=== PATIENT | male | born 1940 | race Caucasian/White ===

== ENCOUNTER 2017-04-14 11:56 | Emergency (ER) | payer MEDICARE ==
--- NOTE | 2017-04-14 12:14 | ER Document Report ---
ED Medical Screen (RME) - General Chief Complaint: Problem with Urinary Catheter Stated Complaint: MCGOVERN CONCERN Time Seen by Provider: 04/14/17 12:13 Notes: Patient has a suprapubic Mcgovern catheter and it began leaking around the catheter about 2:30 AM this morning. TRAVEL OUTSIDE OF THE [place] IN LAST 30 DAYS: No - Related Data Allergies/Adverse Reactions: No Known Allergies Allergy (Verified 04/14/17 12:04) Past Medical History Renal/ Medical History: Denies: Hx Peritoneal Dialysis Physical Exam - Vital signs Vitals: Temp Pulse Resp BP Pulse Ox 97.7 F 73 16 140/61 H 97 04/14/17 12:01 04/14/17 12:01 04/14/17 12:01 04/14/17 12:01 04/14/17 12:01 Course - Vital Signs Vital signs: Temp Pulse Resp BP Pulse Ox 97.7 F 73 16 140/61 H 97 04/14/17 12:01 04/14/17 12:01 04/14/17 12:01 04/14/17 12:01 04/14/17 12:01
--- NOTE | 2017-04-14 13:45 | ER Document Report ---
ED GI/ - General Chief Complaint: Problem with Urinary Catheter Stated Complaint: MCGOVERN CONCERN Time Seen by Provider: 04/14/17 12:13 Mode of Arrival: Ambulatory Information source: Patient Notes: Patient is a 76-year-old male who presents to the ER today from out of town, he is on vacation, for redness, pus. Discharge from the site of his suprapubic catheter insertion. Patient has had this for "quite a while" but had a new one placed 3 weeks ago by his urologist in [place]. He states that yesterday he had no redness or drainage and today, early this morning woke up with such. He denies any fevers or chills. TRAVEL OUTSIDE OF THE [place] IN LAST 30 DAYS: No - Related Data Allergies/Adverse Reactions: No Known Allergies Allergy (Verified 04/14/17 12:04) Past Medical History - General Information source: Patient, Relative - Social History Smoking Status: Never Smoker Family History: Reviewed & Not Pertinent Patient has suicidal ideation: No Patient has homicidal ideation: No Renal/ Medical History: Denies: Hx Peritoneal Dialysis Review of Systems - Review of Systems Constitutional: No symptoms reported EENT: No symptoms reported Cardiovascular: No symptoms reported Respiratory: No symptoms reported Gastrointestinal: No symptoms reported Genitourinary: See HPI Male Genitourinary: No symptoms reported Musculoskeletal: No symptoms reported Skin: No symptoms reported Hematologic/Lymphatic: No symptoms reported Neurological/Psychological: No symptoms reported Physical Exam - Vital signs Vitals: Temp Pulse Resp BP Pulse Ox 97.7 F 73 16 140/61 H 97 04/14/17 12:01 04/14/17 12:01 04/14/17 12:01 04/14/17 12:01 04/14/17 12:01 - Notes Notes: PHYSICAL EXAMINATION: GENERAL: Well-appearing and in no acute distress. HEAD: Atraumatic, normocephalic. EYES: Pupils equal round and reactive to light, extraocular movements intact, sclera anicteric, conjunctiva are normal. NECK: Normal range of motion, supple without lymphadenopathy LUNGS: CTAB and equal. No wheezes rales or rhonchi. HEART: Regular rate and rhythm without murmurs ABDOMEN: Soft, suprapubic catheter insertion site with 2cm of surrounding erythema and purulent drainage, no tenderness. No guarding, no rebound BACK: no vertebral tenderness, normal ROM GI/: no CVA tenderness EXTREMITIES: Normal range of motion, no pitting edema. No cyanosis. NEUROLOGICAL: Cranial nerves grossly intact. Normal sensory/motor exams. PSYCH: Normal mood, normal affect. SKIN: Warm, Dry, normal turgor, erythematous macular rash with satellite erythematous patches to intertriginous area of groin and scrotum, penis without discharge c/w fungal infection Course - Re-evaluation Re-evalutation: 04/14/17 13:[address] Mackenzie, patient's urologist in [place]. awaiting callback. culture pending. pt afebrile with normal vitals. 04/14/17 16:53 Dr. Heredia was at bedside and changed suprapubic catheter, 24F, urine culture now pending as well as wound culture. 04/15/17 08:35 pt given cotrimazole/betamethasone from ER to go home with for fungal infection groin - Vital Signs Vital signs: Temp Pulse Resp BP Pulse Ox 98.1 F 72 18 138/78 H 100 04/14/17 16:47 04/14/17 16:47 04/14/17 16:47 04/14/17 16:47 04/14/17 16:47 - Laboratory Result Diagrams: 04/14/17 13:40 Laboratory results interpreted by me: 04/14/17 04/14/17 13:40 16:45 RDW 15.1 H Urine Protein 100 H Urine Glucose (UA) >=500 H Urine Ketones TRACE H Urine Blood MODERATE H Urine Nitrite POSITIVE H Ur Leukocyte Esterase LARGE H Procedures - Additional Procedures suprapubic catheter removal/reinsertion Time performed: 16:30 - pt tolerated well, balloon inflated to 10cc, holding well, purulent urine Discharge - Discharge Clinical Impression: suprapubic catheter site infection, Fungal infection of the groin Condition: Stable Disposition: HOME, SELF-CARE Additional Instructions: Return immediately for any new or worsening symptoms. Follow up with urologist/primary care provider, call tomorrow to make followup appointment. Prescriptions: Cephalexin Monohydrate [Keflex 500 mg Capsule] 500 mg PO Q6H 10 Days Sulfamethoxazole/Trimethoprim [Bactrim Ds Tablet] 1 each PO BID #20 tablet
[2017-04-14 13:52] LABS: ABSOLUTE BASOPHILS # (AUTO) 0.1 10^3/uL (0.0-0.2); ABSOLUTE EOSINOPHILS # (AUTO) 0.2 10^3/uL (0.0-0.6); ABSOLUTE LYMPHOCYTES (AUTO) 1.5 10^3/uL (0.5-4.7); ABSOLUTE MONOCYTES (AUTO) 0.9 10^3/uL (0.1-1.4); ABSOLUTE NEUT (AUTO) 7.5 10^3/uL (1.7-8.2); BASOPHILS % (AUTO) 0.5 % (0-2); EOSINOPHILS % (AUTO) 1.9 % (0-6); HEMATOCRIT 44.2 % (37.9-51.0); HEMOGLOBIN 14.5 g/dL (13.5-17.0); HGB HCT DIFFERENCE -0.7; LYMPHOCYTES % (AUTO) 15.1 % (13-45); MEAN CORPUSCULAR HEMOGLOBIN 27.4 pg (27.0-33.4); MEAN CORPUSCULAR HGB CONC 32.7 g/dL (32.0-36.0); MEAN CORPUSCULAR VOLUME 84 fl (80-97); MONOCYTES % (AUTO) 8.6 % (3-13); RED BLOOD COUNT 5.29 10^6/uL (4.35-5.55); RED CELL DISTRIBUTION WIDTH 15.1 % (11.5-14.0); SEGMENTED NEUTROPHILS % (AUTO) 73.9 % (42-78); WHITE BLOOD COUNT 10.1 10^3/uL (4.0-10.5)
[2017-04-14] MEDS ORDERED: CLOTRIMAZOLE/BETAMETHASONE DIP CREAM 15 GM TOP ONE (14:26)
[2017-04-14] MEDS ORDERED: SULFAMETHOXAZOLE/TRIMETHOPRIM 800-160 MG TABLET PO ONE (14:50)
[2017-04-14] MEDS ORDERED: CEPHALEXIN 500 MG CAPSULE PO ONE (14:50)
[2017-04-14 17:04] VITALS: BP 138/78
[2017-04-14 17:40] LABS: APPEARANCE,URINE TURBID; BILIRUBIN,URINE NEGATIVE (NEGATIVE); GLUCOSE, URINE >=500 mg/dL (NEGATIVE); KETONES,URINE TRACE mg/dL (NEGATIVE); LEUKOCYTE ESTERASE,URINE LARGE (NEGATIVE); NITRITE,URINE POSITIVE (NEGATIVE); PROTEIN,URINE 100 mg/dL (NEGATIVE); URINE SPECIFIC GRAVITY 1.026; UROBILINOGEN,URINE NEGATIVE mg/dL (<2.0)
== END 2017-04-14 16:47 | disposition home or self-care (01) ==
LOC: ER 11:56
DX: T83.518A Infection and inflammatory reaction due to other urinary catheter, initial encounter (principal); B35.6 Tinea cruris
CPT/HCPCS: 99283; 51702; 36415; 87086; 87070; 87205; 85025; 87077; 87088; 81001; 87186; A9270 ×3